=== PATIENT | female | born 1980 | race Caucasian/White ===

== ENCOUNTER 2017-04-19 01:03 | Emergency (ER) | payer MEDICAID ==
[2017-04-19] MEDS ORDERED: Sodium Chloride 0.9% 1,000 ML IV ONE ×2 (01:19→02:38)
[2017-04-19 01:44] LABS: CHLORIDE,CL 105 mmol/L (98-107); SODIUM,NA 141 mmol/L (136-145)
--- NOTE | 2017-04-19 01:55 | EDM.PDOC ---
ED HPI GENERAL MEDICAL PROBLEM - General Chief Complaint: General Stated Complaint: overdose Time Seen by Provider: 04/19/17 01:18 Source of Information: Reports: Patient, EMS, Other (Significant other) History Limitations: Reports: Altered Mental Status - History of Present Illness INITIAL COMMENTS - FREE TEXT/NARRATIVE: Patient took intentional overdose of medications mixed with ETOH at home this evening approximately 22:30. Angry with soon-to-be Ex. Stated she wanted to hurt self initially. Now denies it when asked if she is suicidal. She told us that she "would be ok" and appeared to be agreeable when asked if this was attention-seeking behavior. EMS said that she is middle of breakup with boyfriend and this apparently is part of the reason for tonight's issues. Patient continued to deny having any suicidal thoughts. No homicidal thoughts. Was oriented appropriately. Appeared fatigued, some slurring of words. Initially said that she took two types of pills. Later said she took 4 types as 4 bottles were empty and boyfriend told EMS that there had been pills in all 4 earlier today. Meds taken included Baclofen, Trazadone, Prozac, Zolpidem. If patient had been taking her medications appropriately prior to tonight she took approximately 45 Baclofen, 10 Trazadone 100mg, 30 Prozac, and 13 Zolpidem. She had a bottle of Clonazepam, uncertain if she took any. She says that she drank approximately 1/3 bottle of [place]. Lower Back Pain Score (Numeric/FACES): 7 - Related Data Allergies Allergy/AdvReac Type Severity Reaction Status Date / Time hydrocortisone Allergy Hives Verified 01/05/15 10:28 Penicillins Allergy Hives Verified 04/19/17 01:21 Home Meds: Home Meds Baclofen [Baclofen] 10 mg PO TID 05/14/14 [History] Hydrocodone/Acetaminophen [Hydrocodon-Acetaminoph 7.5-325] 1 tab PO TID [History] Levothyroxine [Sythroid] 150 mcg PO DAILY 05/14/14 [History] traZODone 100 mg PO BEDTIME 05/14/14 [History] FLUoxetine [PROzac] 4 cap PO DAILY 04/19/17 [History] Zolpidem [Ambien] 5 mg PO BEDTIME 04/19/17 [History] Past Medical History Other HEENT History: Hx of sinus infections Respiratory History: Reports: Asthma 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: , Other (See Below) Other OB/BYN History: Surgery to remove misplaced IUD Musculoskeletal History: Reports: Back Pain, Chronic Other Musculoskeletal History: Low back pain Psychiatric History: Reports: Addiction, Anxiety, Depression, Panic Attack, Suicide Attempt, Suicidal Ideation - Past Surgical History HEENT Surgical History: Reports: Adenoidectomy, Naso-Sinus Surgery, Oral Surgery , Tonsillectomy Other HEENT Surgeries/Procedures: [place] Teeth GI Surgical History: Reports: Appendectomy Female Surgical History: Reports: Tubal Ligation Social & Family History - Tobacco Use Smoking Status *Q: Current Every Day Smoker Years of Tobacco use: 20 Packs/Tins Daily: 1 Second Hand Smoke Exposure: No - Caffeine Use Caffeine Use: Reports: Coffee, Energy Drinks, Soda - Alcohol Use Days Per Week of Alcohol Use: 0 - Recreational Drug Use Recreational Drug Use: No Recreational Drug Type: Reports: Amphetamines (Speed), Fentanyl, Marijuana/ Hashish ED ROS GENERAL - Review of Systems Review Of Systems: See Below Constitutional: Reports: No Symptoms HEENT: Reports: No Symptoms Respiratory: Reports: No Symptoms Cardiovascular: Reports: No Symptoms Endocrine: Reports: No Symptoms GI/Abdominal: Reports: No Symptoms. Denies: Abdominal Pain, Nausea, Vomiting : Reports: No Symptoms Musculoskeletal: Reports: Back Pain (chronic, unchanged) Skin: Reports: No Symptoms Neurological: Reports: Trouble Speaking (slurred speech), Other (altered mentation from substance ingestion). Denies: Confusion, Dizziness, Headache, Seizure Psychiatric: Denies: Homicidal Ideation, Suicidal Ideation (denies) ED EXAM, GENERAL - Physical Exam Exam: See Below Exam Limited By: No Limitations General Appearance: No Apparent Distress, Other (awake, cooperative) Eye Exam: Bilateral Eye: EOMI, PERRL Ears: Normal External Exam, Normal Canal, Hearing Grossly Normal, Normal TMs Nose: Normal Inspection, Normal Mucosa, No Blood Throat/Mouth: Normal Inspection, Normal Lips, Normal Voice, No Airway Compromise Head: Atraumatic, Normocephalic Neck: Normal Inspection, Supple, Non-Tender, Full Range of Motion Respiratory/Chest: No Respiratory Distress, Lungs Clear, Normal Breath Sounds, No Accessory Muscle Use Cardiovascular: Normal Peripheral Pulses, Regular Rate, Rhythm, No Edema, No Murmur Peripheral Pulses: 2+: Radial (L), Radial (R), Dorsalis Pedis (L), Dorsalis Pedis (R) GI/Abdominal: Normal Bowel Sounds, Soft, Non-Tender, No Distention, No Mass (Female) Exam: Deferred Rectal (Female) Exam: Deferred Back Exam: Normal Inspection Extremities: Normal Inspection, Normal Range of Motion, Non-Tender, No Pedal Edema, Normal Capillary Refill Neurological: Alert, Oriented (oriented x4), CN II-XII Intact, Normal Reflexes, No Motor/Sensory Deficits, Inattentive, Slow to Respond (mild) Psychiatric: Other (intoxicated) Skin Exam: Warm, Dry, Intact, Normal Color EKG INTERPRETATION EKG Date: 04/19/17 Time: 01:25 Rhythm: NSR Rate (Beats/Min): 90 [place]: RAD-Right [place] Deviation P-Wave: Present QRS: Normal ST-T: Normal QT: Prolonged (408) Comparison: Change From Previous EKG (previous EKG showed right axis deviation, however no QT prolongation) Course - Vital Signs Last Recorded V/S: Last Vital Signs Temp 37.4 C 04/19/17 04:45 Pulse 95 04/19/17 04:45 Resp 20 04/19/17 04:45 BP 105/60 04/19/17 04:45 Pulse Ox 95 04/19/17 04:45 - Orders/Labs/Meds Labs: Laboratory Tests 04/19/17 04/19/17 04/19/17 Range/Units : 01: 01:20 WBC 8.3 (4.0-10.2) K/uL RBC 4.75 (3.77-5.09) M/uL Hgb 14.9 (11.7-15.5) g/dL Hct 43.3 (34.0-46.0) % MCV 91.2 (84.0-98.0) fL MCH 31.4 (28.2-33.3) pg MCHC 34.4 (31.7-36.0) g/dL RDW 12.8 (11.2-14.1) % Plt Count 202 (150-350) K/uL Neut % (Auto) 69.2 (45.0-80.0) % Lymph % (Auto) 22.1 (10.0-50.0) % Morris % (Auto) 8.1 (2.0-14.0) % Eos % (Auto) 0.5 (0.0-5.0) % Baso % (Auto) 0.1 (0.0-2.0) % Neut # (Auto) 5.75 (1.40-7.00) K/uL Lymph # (Auto) 1.84 (0.50-3.50) K/uL Morris # (Auto) 0.67 (0.00-1.00) K/uL Eos # (Auto) 0.04 (0.00-0.50) K/uL Baso # (Auto) 0.01 (0.00-0.20) K/uL Sodium 141 (136-145) mmol/L Potassium 3.4 L (3.5-5.1) mmol/L Chloride 105 (98-107) mmol/L Carbon Dioxide 23.6 (21.0-32.0) mmol/L BUN 12 (7-18) mg/dL Creatinine 0.88 (0.51-1.17) mg/dL Est Cr Clr Drug Dosing 81.48 mL/min Estimated GFR (MDRD) > 60 mL/min Glucose 95 (74-106) mg/dL Calcium 8.9 (8.5-10.1) mg/dL Total Bilirubin 0.4 (0.2-1.0) mg/dL AST 12 L (15-37) U/L ALT 22 (12-78) U/L Alkaline Phosphatase 71 (46-116) IU/L Total Protein 7.1 (6.4-8.2) g/dL Albumin 3.9 (3.4-5.0) g/dL Specimen Type Urine Color Urine Appearance Urine pH (5.0-9.0) Ur Specific Cecilia (1.005-1.030) Urine Protein (NEGATIVE) mg/dL Urine Glucose (UA) (NEGATIVE) mg/dL Urine Ketones (NEGATIVE) mg/dL Urine Occult Blood (NEGATIVE) Urine Nitrite (NEGATIVE) Urine Bilirubin (NEGATIVE) Urine Urobilinogen (0.2-1.0) E.U./dL Ur Leukocyte Esterase (NEGATIVE) Urine RBC /HPF Urine WBC /HPF Ur Epithelial Cells /LPF Urine Bacteria (NONE TO FEW) /HPF Urine Opiates Screen Positive H (NEGATIVE) Urine Methadone Screen Negative (NEGATIVE) U Acetaminophen Screen Positive H (NEGATIVE) Ur Barbiturates Screen Negative (NEGATIVE) Ur Tricyclics Screen Negative (NEGATIVE) Ur Phencyclidine Scrn Negative (NEGATIVE) Ur Amphetamine Screen Positive H (NEGATIVE) U Methamphetamines Scrn Positive H (NEGATIVE) U Benzodiazepines Scrn Negative (NEGATIVE) U Cocaine Metab Screen Negative (NEGATIVE) U Marijuana (THC) Screen Positive H (NEGATIVE) Ethyl Alcohol 0.032 (0.000-0.080) g/dL 04/19/17 Range/Units 01:20 WBC (4.0-10.2) K/uL RBC (3.77-5.09) M/uL Hgb (11.7-15.5) g/dL Hct (34.0-46.0) % MCV (84.0-98.0) fL MCH (28.2-33.3) pg MCHC (31.7-36.0) g/dL RDW (11.2-14.1) % Plt Count (150-350) K/uL Neut % (Auto) (45.0-80.0) % Lymph % (Auto) (10.0-50.0) % Morris % (Auto) (2.0-14.0) % Eos % (Auto) (0.0-5.0) % Baso % (Auto) (0.0-2.0) % Neut # (Auto) (1.40-7.00) K/uL Lymph # (Auto) (0.50-3.50) K/uL Morris # (Auto) (0.00-1.00) K/uL Eos # (Auto) (0.00-0.50) K/uL Baso # (Auto) (0.00-0.20) K/uL Sodium (136-145) mmol/L Potassium (3.5-5.1) mmol/L Chloride (98-107) mmol/L Carbon Dioxide (21.0-32.0) mmol/L BUN (7-18) mg/dL Creatinine (0.51-1.17) mg/dL Est Cr Clr Drug Dosing mL/min Estimated GFR (MDRD) mL/min Glucose (74-106) mg/dL Calcium (8.5-10.1) mg/dL Total Bilirubin (0.2-1.0) mg/dL AST (15-37) U/L ALT (12-78) U/L Alkaline Phosphatase (46-116) IU/L Total Protein (6.4-8.2) g/dL Albumin (3.4-5.0) g/dL Specimen Type Urinvoid Urine Color Yellow Urine Appearance Clear Urine pH 6.5 (5.0-9.0) Ur Specific Cec[place] 1.020 (1.005-1.030) Urine Protein Negative (NEGATIVE) mg/dL Urine Glucose (UA) Negative (NEGATIVE) mg/dL Urine Ketones Negative (NEGATIVE) mg/dL Urine Occult Blood Negative (NEGATIVE) Urine Nitrite Negative (NEGATIVE) Urine Bilirubin Negative (NEGATIVE) Urine Urobilinogen 0.2 (0.2-1.0) E.U./dL Ur Leukocyte Esterase Trace H (NEGATIVE) Urine RBC 0-5 /HPF Urine WBC 5-10 H /HPF Ur Epithelial Cells Moderate H /LPF Urine Bacteria Few (NONE TO FEW) /HPF Urine Opiates Screen (NEGATIVE) Urine Methadone Screen (NEGATIVE) U Acetaminophen Screen (NEGATIVE) Ur Barbiturates Screen (NEGATIVE) Ur Tricyclics Screen (NEGATIVE) Ur Phencyclidine Scrn (NEGATIVE) Ur Amphetamine Screen (NEGATIVE) U Methamphetamines Scrn (NEGATIVE) U Benzodiazepines Scrn (NEGATIVE) U Cocaine Metab Screen (NEGATIVE) U Marijuana (THC) Screen (NEGATIVE) Ethyl Alcohol (0.000-0.080) g/dL Meds: Medications Discontinued Medications Generic Name Dose Route Start Last Admin Trade Name Carmen PRN Reason Stop Dose Admin Sodium Chloride 1,000 mls @ 999 mls/hr 04/19/17 01:19 04/19/17 01:37 Normal Saline IV 04/19/17 02:19 999 mls/hr .BOLUS ONE Administration Sodium Chloride 1,000 mls @ 200 mls/hr 04/19/17 02:38 04/19/17 02:41 Normal Saline IV 04/19/17 07:37 200 mls/hr .BOLUS ONE Administration - Re-Assessments/Exams Free Text/Narrative Re-Assessment/Exam: 04/19/17 02:26 Call placed to poison control. Baclofen, Trazadone, and Zolpidem all should have reached their peak by time patient was seen in ER. Given there usual side effects in OD situations, based on patients current LOC and interaction with staff, it is felt that she has appeared to not have taken a significant amount of these medications at reported time of ingestion. Prozac however does not peak until 8 hours and it is too early to tell if she has the potential for seratonin syndrome. Both Trazadone and Prozac cause prolonged QT, which patient did show on EKG. Recommended by Poison control to observe 12-24 hours. Given the prolonged QT, the unknown amount of ingestion of meds, and the peaking of the Prozac that will not happen until approximately 6:30am, arrangements were made to transfer patient to [facility] ER. accepted the patient and will determine what type of bed placement is appropriate for patient once she arrives there. Drug screen + for Meth/Amphetamine, opioids, THC. 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 Remains stable, comfortable, and able to converse with staff and significant other. Departure - Departure Time of Disposition: 05:10 Disposition: DC/Tfer to Acute Hospital 02 Condition: Good Clinical Impression: Alcohol abuse, Methamphetamine abuse Overdose Qualifiers: Encounter type: initial encounter Injury intent: intentional self-harm Qualified Code(s): T50.902A - Poisoning by unspecified drugs, medicaments and biological substances, intentional self-harm, initial encounter - Discharge Information Referrals: PCP,None [Ordering Only Provider] - Forms: ED Department Discharge
[2017-04-19 04:49] VITALS: BP 105/60
== END 2017-04-19 05:10 ==
LOC: LL.ED 01:03
DX: T42.8X2A Poisoning by antiparkinsonism drugs and other central muscle-tone depressants, intentional self-harm, initial encounter (principal); T43.212A Poisoning by selective serotonin and norepinephrine reuptake inhibitors, intentional self-harm, initial encounter; T43.222A Poisoning by selective serotonin reuptake inhibitors, intentional self-harm, initial encounter; T42.6X2A Poisoning by other antiepileptic and sedative-hypnotic drugs, intentional self-harm, initial encounter; F10.129 Alcohol abuse with intoxication, unspecified; F15.10 Other stimulant abuse, uncomplicated; Y90.1 Blood alcohol level of 20-39 mg/100 ml; F41.0 Panic disorder [episodic paroxysmal anxiety]; F32.9 Major depressive disorder, single episode, unspecified; F17.210 Nicotine dependence, cigarettes, uncomplicated; Z79.899 Other long term (current) drug therapy; Z88.0 Allergy status to penicillin; Z88.8 Allergy status to other drugs, medicaments and biological substances
CPT/HCPCS: 36415; 80053; 80305; 81001; 85025; 87086; 93005; 96360; 96361; 99285; G0480; J7030

== ENCOUNTER 2018-08-17 23:48 | Emergency (ER) | payer MEDICAID ==
[2018-08-18 00:01] VITALS: BP 120/76
--- NOTE | 2018-08-18 00:57 | EDM.PDOC ---
ED HPI GENERAL MEDICAL PROBLEM - General Chief Complaint: General Stated Complaint: throat pain Time Seen by Provider: 08/18/18 00:08 Source of Information: Reports: Patient History Limitations: Reports: No Limitations - History of Present Illness INITIAL COMMENTS - FREE TEXT/NARRATIVE: Patient comes to ER due to sore throat. Was seen at clinic for this. No culture performed. Placed on Z-pack. Patient concerned that throat pain is not any better as she has taken 4 days of the zpak. No fevers/chills. No other HEENT complaints. Has cough. No N/V/D. No changes. Tylenol and Ibuprofen are not helpful. Is unable to sleep. Unhappy that her primary provider discontinued he Klonopin. Reports she had a panic attack earlier today. Also reports stress/pending divorce. Treatments [place] ORD[place]: Reports: Acetaminophen, Other Medication(s) Other Treatments [place] ORDINARY: ibuprofen,mucinex throat Pain Score (Numeric/FACES): 7 - Related Data Allergies Allergy/AdvReac Type Severity Reaction Status Date / Time acyclovir Allergy Other Verified 08/17/18 23:53 hydrocortisone Allergy Hives Verified 08/17/18 23:53 Penicillins Allergy Hives Verified 08/17/18 23:53 Home Meds: Home Meds traZODone 100 mg PO BEDTIME 05/14/14 [History] FLUoxetine [PROzac] 40 mg PO DAILY 04/19/17 [History] Levothyroxine 75 mcg PO QAM 03/26/18 [History] Acetaminophen 1,000 mg PO BID PRN 08/18/18 [History] Azithromycin [Zithromax] 250 mg PO ASDIRECTED 08/18/18 [History] Benzonatate [Tessalon Perle] 100 mg PO Q8H PRN #30 capsule 08/18/18 [Rx] Cyclobenzaprine [Flexeril] 5 mg PO TID PRN 08/18/18 [History] Gabapentin [Neurontin] 600 mg PO 0800 08/18/18 [History] Gabapentin [Neurontin] 900 mg PO BEDTIME 08/18/18 [History] Ibuprofen [Motrin] 800 mg PO TID PRN 08/18/18 [History] Nitrofurantoin [place]/Macrocryst [Nitrofurantoin [place]-MCR] 100 mg PO DAILY [History] busPIRone [Buspar] 15 mg PO DAILY 08/18/18 [History] guaiFENesin [Guaifenesin] 400 mg PO DAILY 08/18/18 [History] valACYclovir [Valtrex] 2 tab PO DAILY PRN 08/18/18 [History] Past Medical History Other HEENT History: Hx of sinus infections Respiratory History: Reports: Asthma Genitourinary History: Reports: Renal Calculus 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: , Other (See Below) 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 SODA History: Surgery to remove misplaced IUD Musculoskeletal History: Reports: Back Pain, Chronic Other Musculoskeletal History: Low back pain Psychiatric History: Reports: Addiction, Anxiety, Depression, Panic Attack, Suicide Attempt, Suicidal Ideation - Past Surgical History HEENT Surgical History: Reports: Adenoidectomy, Naso-Sinus Surgery, Oral Surgery , Tonsillectomy Other HEENT Surgeries/Procedures: [place] Teeth GI Surgical History: Reports: Appendectomy Female Surgical History: Reports: Tubal Ligation Social & Family History - Tobacco Use Smoking Status *Q: Current Every Day Smoker Years of Tobacco use: 20 Packs/Tins Daily: 0.5 Used Tobacco, but Quit: No Second Hand Smoke Exposure: No - Caffeine Use Caffeine Use: Reports: Soda Other Caffeine Use: mt dew - Recreational Drug Use Recreational Drug Use: No ED ROS GENERAL - Review of Systems Review Of Systems: See Below Constitutional: Reports: Decreased Appetite. Denies: Fever, Chills, Malaise, Weakness, Fatigue, Night Sweats, Diaphoresis HEENT: Reports: Throat Pain. Denies: Ear Pain, Eye Discharge, Throat Swelling Respiratory: Reports: Cough. Denies: Shortness of Breath, Wheezing, Pleuritic Chest Pain, Sputum Cardiovascular: Reports: No Symptoms GI/Abdominal: Reports: No Symptoms : Reports: No Symptoms Musculoskeletal: Reports: No Symptoms Skin: Reports: No Symptoms Neurological: Reports: No Symptoms Psychiatric: Reports: Other (panic attack earlier today) ED EXAM, GENERAL - Physical Exam Exam: See Below Exam Limited By: No Limitations General Appearance: Alert, Thin, Other (pale) Eye Exam: Bilateral Eye: EOMI, PERRL Ears: Normal External Exam, Normal Canal, Hearing Grossly Normal, Normal TMs Nose: No: Nasal Deformity, Nasal Swelling, Nasal Drainage Throat/Mouth: Normal Inspection, Normal Oropharynx, Normal Voice, No Airway Compromise. No: Inflammation Head: Atraumatic, Normocephalic Neck: Normal Inspection, Supple, Non-Tender, Full Range of Motion. No: Lymphadenopathy (L), Lymphadenopathy (R) Respiratory/Chest: No Respiratory Distress, Lungs Clear, Normal Breath Sounds, No Accessory Muscle Use Cardiovascular: Normal Peripheral Pulses, Regular Rate, Rhythm, No Murmur GI/Abdominal: Normal Bowel Sounds, Soft, Non-Tender (Female) Exam: Deferred Rectal (Female) Exam: Deferred Back Exam: No: Muscle Spasm Extremities: Normal Inspection Neurological: Alert, Oriented, Normal Gait Psychiatric: Normal Affect, Normal Mood Skin Exam: Warm, Dry Course - Vital Signs Last Recorded V/S: Last Vital Signs Temp 36.8 C 08/17/18 23:53 Pulse 93 08/17/18 23:53 Resp 16 08/17/18 23:53 BP 120/76 08/17/18 23:53 Pulse Ox 100 08/17/18 23:53 - Orders/Labs/Meds Orders: Active Orders 24 hr Category Date Time Status Chest 2V [CR] Stat Exams 08/18/18 00:30 Ordered CULTURE STREP A CONFIRMATION [RM] Stat Lab 08/18/18 00:30 Results STREP SCRN A RAPID W CULT CONF [RM] Stat Lab 08/18/18 00:30 Ordered ClonazePAM [KlonoPIN] Med 08/18/18 01:24 Once 0.5 mg PO ONETIME ONE Labs: Laboratory Tests 08/18/18 08/18/18 08/18/18 Range/Units 00:35 00:35 00:35 WBC 8.5 (4.0-10.2) K/uL RBC 4.41 (3.77-5.09) M/uL Hgb 13.8 D (11.7-15.5) g/dL Hct 40.3 (34.0-46.0) % MCV 91.4 D (84.0-98.0) fL MCH 31.3 (28.2-33.3) pg MCHC 34.2 (31.7-36.0) g/dL RDW 12.5 (11.2-14.1) % Plt Count 186 (150-350) K/uL Neut % (Auto) 64.2 (45.0-80.0) % Lymph % (Auto) 23.3 (10.0-50.0) % [place]atte % (Auto) 11.0 (2.0-14.0) % Eos % (Auto) 1.4 (0.0-5.0) % Baso % (Auto) 0.1 (0.0-2.0) % Neut # (Auto) 5.43 (1.40-7.00) K/uL Lymph # (Auto) 1.97 (0.50-3.50) K/uL [place]atte # (Auto) 0.93 (0.00-1.00) K/uL Eos # (Auto) 0.12 (0.00-0.50) K/uL Baso # (Auto) 0.01 (0.00-0.20) K/uL Sodium 140 (136-145) mmol/L Potassium 3.4 L (3.5-5.1) mmol/L Chloride 105 (98-107) mmol/L Carbon Dioxide 28.2 (21.0-32.0) mmol/L BUN 19 H (7-18) mg/dL Creatinine 0.66 (0.51-1.17) mg/dL Est Cr Clr Drug Dosing 108.19 mL/min Estimated GFR (MDRD) > 60 mL/min Glucose 116 H (74-106) mg/dL Calcium 8.7 (8.5-10.1) mg/dL Total Bilirubin 0.8 (0.2-1.0) mg/dL AST 14 L (15-37) U/L ALT 19 (12-78) U/L Alkaline Phosphatase 84 (46-116) IU/L Total Protein 7.1 (6.4-8.2) g/dL Albumin 3.8 (3.4-5.0) g/dL Specimen Type Urine Color Urine Appearance Urine pH (5.0-9.0) Ur Specific [place] (1.005-1.030) Urine Protein (NEGATIVE) mg/dL Urine Glucose (UA) (NEGATIVE) mg/dL Urine Ketones (NEGATIVE) mg/dL Urine Occult Blood (NEGATIVE) Urine Nitrite (NEGATIVE) Urine Bilirubin (NEGATIVE) Urine Urobilinogen (0.2-1.0) E.U./dL Ur Leukocyte Esterase (NEGATIVE) Urine RBC /HPF Urine WBC /HPF Ur Epithelial Cells /LPF Amorphous Sediment (0/HPF) /HPF Urine Bacteria (NONE TO FEW) /HPF Urinalysis Comment Urine HCG, Qual Urine Opiates Screen (NEGATIVE) Urine Methadone Screen (NEGATIVE) U Acetaminophen Screen (NEGATIVE) Ur Barbiturates Screen (NEGATIVE) Ur Tricyclics Screen (NEGATIVE) Ur Phencyclidine Scrn (NEGATIVE) Ur Amphetamine Screen (NEGATIVE) U Methamphetamines Scrn (NEGATIVE) U Benzodiazepines Scrn (NEGATIVE) U Cocaine Metab Screen (NEGATIVE) U Marijuana (THC) Screen (NEGATIVE) Ethyl Alcohol 0.000 (0.000-0.080) g/dL 08/18/18 08/18/18 08/18/18 Range/Units 00:45 00:45 00:45 WBC (4.0-10.2) K/uL RBC (3.77-5.09) M/uL Hgb (11.7-15.5) g/dL Hct (34.0-46.0) % MCV (84.0-98.0) fL MCH (28.2-33.3) pg MCHC (31.7-36.0) g/dL RDW (11.2-14.1) % Plt Count (150-350) K/uL Neut % (Auto) (45.0-80.0) % Lymph % (Auto) (10.0-50.0) % [place]atte % (Auto) (2.0-14.0) % Eos % (Auto) (0.0-5.0) % Baso % (Auto) (0.0-2.0) % Neut # (Auto) (1.40-7.00) K/uL Lymph # (Auto) (0.50-3.50) K/uL [place]atte # (Auto) (0.00-1.00) K/uL Eos # (Auto) (0.00-0.50) K/uL Baso # (Auto) (0.00-0.20) K/uL Sodium (136-145) mmol/L Potassium (3.5-5.1) mmol/L Chloride (98-107) mmol/L Carbon Dioxide (21.0-32.0) mmol/L BUN (7-18) mg/dL Creatinine (0.51-1.17) mg/dL Est Cr Clr Drug Dosing mL/min Estimated GFR (MDRD) mL/min Glucose (74-106) mg/dL Calcium (8.5-10.1) mg/dL Total Bilirubin (0.2-1.0) mg/dL AST (15-37) U/L ALT (12-78) U/L Alkaline Phosphatase (46-116) IU/L Total Protein (6.4-8.2) g/dL Albumin (3.4-5.0) g/dL Specimen Type Urinblad Urine Color Annetta Urine Appearance Slightly cloudy Urine pH 5.5 (5.0-9.0) Ur Specific [place] >= 1.030 (1.005-1.030) Urine Protein Trace H (NEGATIVE) mg/dL Urine Glucose (UA) Negative (NEGATIVE) mg/dL Urine Ketones 80 H (NEGATIVE) mg/dL Urine Occult Blood Negative (NEGATIVE) Urine Nitrite Negative (NEGATIVE) Urine Bilirubin Small H (NEGATIVE) Urine Urobilinogen 1.0 (0.2-1.0) E.U./dL Ur Leukocyte Esterase Trace H (NEGATIVE) Urine RBC 0-5 /HPF Urine WBC 0-5 /HPF Ur Epithelial Cells Many H /LPF Amorphous Sediment Many H (0/HPF) /HPF Urine Bacteria Moderate H (NONE TO FEW) /HPF Urinalysis Comment Urine HCG, Qual Negative Urine Opiates Screen Negative (NEGATIVE) Urine Methadone Screen Negative (NEGATIVE) U Acetaminophen Screen Positive H (NEGATIVE) Ur Barbiturates Screen Negative (NEGATIVE) Ur Tricyclics Screen Positive H (NEGATIVE) Ur Phencyclidine Scrn Negative (NEGATIVE) Ur Amphetamine Screen Positive H (NEGATIVE) U Methamphetamines Scrn Positive H (NEGATIVE) U Benzodiazepines Scrn Negative (NEGATIVE) U Cocaine Metab Screen Negative (NEGATIVE) U Marijuana (THC) Screen Positive H (NEGATIVE) Ethyl Alcohol (0.000-0.080) g/dL Meds: Medications Discontinued Medications Generic Name Dose Route Start Last Admin Trade Name Freq PRN Reason Stop Dose Admin Benzonatate 200 mg 08/18/18 01:22 Tessalon Perles PO 08/18/18 01:23 ONETIME ONE Clonidine HCl 0.1 mg 08/18/18 01:22 Catapres PO 08/18/18 01:23 ONETIME ONE Ketorolac Tromethamine 60 mg 08/18/18 01:22 Toradol IM 08/18/18 01:23 ONETIME ONE Potassium Chloride 40 meq 08/18/18 01:14 Klor-Con M20 PO 08/18/18 01:15 ONETIME ONE - Radiology Interpretation Free Text/Narrative:: chest xray unremarkable. - Re-Assessments/Exams Free Text/Narrative Re-Assessment/Exam: 08/18/18 01:25 Normal WBC. Negative rapid strep. CBC/Chem overall unremarkable. UA showed ketones, however no changes suggestive of UTI. DRug screen + for Meth/THC. Patient received IM Toradol to help with pain. Single dose of Klonopin given to help her sleep tonight. Single dose Tessalon for cough. Suspect viral respiratory illness. Recommend taking last zithromax tomorrow as scheduled. To follow up as needed. Time spent discussing lifestyle choices as well as strategies to stop using Meth. Patient blamed the meth use on current life stressors/interpersonal problems. 08/18/18 01:31 Declined IV fluids Departure - Departure Time of Disposition: 01:40 Disposition: Home, Self-Care 01 Condition: Good Clinical Impression: Methamphetamine abuse, Respiratory tract infection Pharyngitis Qualifiers: Pharyngitis/tonsillitis etiology: unspecified etiology Qualified Code(s): J02.9 - Acute pharyngitis, unspecified - Discharge Information *PRESCRIPTION DRUG MONITORING PROGRAM REVIEWED*: Not Applicable *COPY OF PRESCRIPTION DRUG MONITORING REPORT IN PATIENT TERRY: Not Applicable Prescriptions: Benzonatate [Tessalon Perle] 100 mg PO Q8H PRN #30 capsule PRN Reason: Cough Instructions: Sore Throat, [id number], Stimulant Use Disorder- Methamphetamines Referrals: Zuleyma Keith, MUD JACK OPERATOR [Primary Care Provider] - Forms: ED Department Discharge, ED Return to Work/School Form Additional Instructions: Finish taking your Z-pack as instructed. Stay hydrated (water), continue Tylenol and Ibuprofen to help with pain. No work tomorrow. Follow up as needed if no improvement is noted. - My Orders Last 24 Hours: My Active Orders 08/18/18 00:30 Chest 2V [CR] Stat CULTURE STREP A CONFIRMATION [RM] Stat STREP SCRN A RAPID W CULT CONF [RM] Stat 08/18/18 01:24 ClonazePAM [KlonoPIN] 0.5 mg PO ONETIME ONE - Assessment/Plan Last 24 Hours: My Active Orders 08/18/18 00:30 Chest 2V [CR] Stat CULTURE STREP A CONFIRMATION [RM] Stat STREP SCRN A RAPID W CULT CONF [RM] Stat 08/18/18 01:24 ClonazePAM [KlonoPIN] 0.5 mg PO ONETIME ONE
[2018-08-18 00:58] LABS: CHLORIDE,CL 105 mmol/L (98-107); SODIUM,NA 140 mmol/L (136-145)
[2018-08-18] MEDS ORDERED: Potassium Chloride 20 MEQ Tab.ER PO ONE (01:14)
[2018-08-18] MEDS ORDERED: cloNIDine 0.1 MG Tab PO ONE (01:22)
[2018-08-18] MEDS ORDERED: Benzonatate 100 MG Cap PO ONE (01:22)
[2018-08-18] MEDS ORDERED: ClonazePAM 0.5 MG Tab PO ONE (01:24)
[2018-08-18] MEDS: Ketorolac 60 MG/2 ML SDV IM ONE ×2 (01:31→01:39)
== END 2018-08-18 01:45 | disposition home or self-care (01) ==
LOC: LL.ED 23:48
DX: J02.9 Acute pharyngitis, unspecified (principal); F15.10 Other stimulant abuse, uncomplicated; F17.210 Nicotine dependence, cigarettes, uncomplicated; F41.9 Anxiety disorder, unspecified; F32.9 Major depressive disorder, single episode, unspecified; J45.909 Unspecified asthma, uncomplicated; Z79.899 Other long term (current) drug therapy; Z88.0 Allergy status to penicillin; Z88.8 Allergy status to other drugs, medicaments and biological substances
CPT/HCPCS: 36415; 71046; 80053; 80305-QW; 81001; 81025; 85025; 87081; 87430; 99283-25; A9270-GY; G0480; J1885

== ENCOUNTER 2019-03-01 17:18 | Emergency (ER) | payer MEDICAID ==
[2019-03-01 17:58] VITALS: BP 126/80; PULSE 106
--- NOTE | 2019-03-01 18:11 | EDM.PDOC ---
ED HPI GENERAL MEDICAL PROBLEM - General Chief Complaint: Respiratory Problem Stated Complaint: Cough, Fatuige Time Seen by Provider: 03/01/19 17:57 Source of Information: Reports: Patient History Limitations: Reports: No Limitations - History of Present Illness INITIAL COMMENTS - FREE TEXT/NARRATIVE: Pt with cough for 2 weeks Also with fatigue Also with some congestion Onset: Gradual Duration: Week(s): Location: Reports: Chest Worsens with: Reports: Breathing Associated Symptoms: Reports: Cough - Related Data Allergies Allergy/AdvReac Type Severity Reaction Status Date / Time acyclovir Allergy Other Verified 08/17/18 23:53 hydrocortisone Allergy Hives Verified 08/17/18 23:53 Penicillins Allergy Hives Verified 08/17/18 23:53 Home Meds: Home Meds traZODone 100 mg PO BEDTIME 05/14/14 [History] FLUoxetine [PROzac] 40 mg PO DAILY 04/19/17 [History] Levothyroxine 75 mcg PO QAM 03/26/18 [History] Acetaminophen 1,000 mg PO BID PRN 08/18/18 [History] Azithromycin [Zithromax] 250 mg PO ASDIRECTED 08/18/18 [History] Benzonatate [Tessalon Perle] 100 mg PO Q8H PRN #30 capsule 08/18/18 [Rx] Cyclobenzaprine [Flexeril] 5 mg PO TID PRN 08/18/18 [History] Gabapentin [Neurontin] 600 mg PO 0800 08/18/18 [History] Gabapentin [Neurontin] 900 mg PO BEDTIME 08/18/18 [History] Ibuprofen [Motrin] 800 mg PO TID PRN 08/18/18 [History] Nitrofurantoin [place]/Macrocryst [Nitrofurantoin [place]-MCR] 100 mg PO DAILY [History] busPIRone [Buspar] 15 mg PO DAILY 08/18/18 [History] guaiFENesin [Guaifenesin] 400 mg PO DAILY 08/18/18 [History] valACYclovir [Valtrex] 2 tab PO DAILY PRN 08/18/18 [History] Past Medical History Other HEENT History: Hx of sinus infections Respiratory History: Reports: Asthma Genitourinary History: Reports: Renal Calculus 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 GENERATOR MANAGER History: Reports: , Other (See Below) Other DEMAND GENERATOR MANAGER History: Surgery to remove misplaced IUD Musculoskeletal History: Reports: Back Pain, Chronic Other Musculoskeletal History: Low back pain Psychiatric History: Reports: Addiction, Anxiety, Depression, Panic Attack, Suicide Attempt, Suicidal Ideation - Past Surgical History HEENT Surgical History: Reports: Adenoidectomy, Naso-Sinus Surgery, Oral Surgery , Tonsillectomy Other HEENT Surgeries/Procedures: Rogers Teeth GI Surgical History: Reports: Appendectomy Female Surgical History: Reports: Tubal Ligation Social & Family History - Caffeine Use Caffeine Use: Reports: Soda Other Caffeine Use: mt dew ED ROS GENERAL - Review of Systems Review Of Systems: See Below Constitutional: Reports: Fatigue Respiratory: Reports: Cough ED EXAM, GENERAL - Physical Exam Exam: See Below Exam Limited By: No Limitations Nose: Normal Inspection Throat/Mouth: Normal Oropharynx Respiratory/Chest: Lungs Clear, Normal Breath Sounds Course - Vital Signs Last Recorded V/S: Last Vital Signs Temp 36.6 C 03/01/19 17:20 Pulse 106 H 03/01/19 17:20 Resp 16 03/01/19 17:20 BP 126/80 03/01/19 17:20 Pulse Ox 100 03/01/19 17:20 - Orders/Labs/Meds Orders: Active Orders 24 hr Category Date Time Status Chest 2V [CR] Stat Exams 03/01/19 17:35 Taken Labs: Laboratory Tests 03/01/19 Range/Units 17:45 WBC 7.5 (4.0-10.2) K/uL RBC 4.80 (3.77-5.09) M/uL Hgb 14.9 (11.7-15.5) g/dL Hct 43.8 (34.0-46.0) % MCV 91.3 (84.0-98.0) fL MCH 31.0 (28.2-33.3) pg MCHC 34.0 (31.7-36.0) g/dL RDW 12.5 (11.2-14.1) % Plt Count 232 (150-350) K/uL MPV 11.10 (7.00-11.50) fL - Radiology Interpretation Free Text/Narrative:: CXR without acute infiltrate Departure - Departure Time of Disposition: 18:10 Disposition: Home, Self-Care 01 Clinical Impression: URI (upper respiratory infection) Qualifiers: URI type: unspecified viral URI Qualified Code(s): J06.9 - Acute upper respiratory infection, unspecified - Discharge Information *PRESCRIPTION DRUG MONITORING PROGRAM REVIEWED*: Not Applicable *COPY OF PRESCRIPTION DRUG MONITORING REPORT IN PATIENT TERRY: Not Applicable Instructions: Upper Respiratory Infection, Adult, Loir-[id number] Referrals: Zuleyma Keith, CONGRESSIONAL DISTRICT AIDE [Primary Care Provider] - Additional Instructions: Rx Berry Hernandez Follow up in clinic - My Orders Last 24 Hours: My Active Orders 03/01/19 17:35 Chest 2V [CR] Stat - Assessment/Plan Last 24 Hours: My Active Orders 03/01/19 17:35 Chest 2V [CR] Stat
== END 2019-03-01 18:15 | disposition home or self-care (01) ==
LOC: LL.ED 17:18
DX: J06.9 Acute upper respiratory infection, unspecified (principal); Z79.899 Other long term (current) drug therapy; Z88.0 Allergy status to penicillin
CPT/HCPCS: 36415; 71046; 85027; 99283; 99283-25

== ENCOUNTER 2019-03-14 01:30 | Emergency (ER) | payer SELFPAY ==
[2019-03-14] MEDS ORDERED: Potassium Chloride 20 MEQ Tab.ER PO ONE (03:05)
[2019-03-14 07:01] LABS: CHLORIDE,CL 100 mmol/L (98-107); SODIUM,NA 137 mmol/L (136-145)
== END 2019-03-14 03:16 | disposition home or self-care (01) ==
LOC: LL.ED 01:30
DX: E87.6 Hypokalemia (principal); M25.562 Pain in left knee
CPT/HCPCS: 36415; 80048; 85025; 99283; A9270-GY

== ENCOUNTER 2019-03-21 22:44 | Emergency (ER) | payer MEDICAID ==
[2019-03-21 22:53] VITALS: BP 133/79; PULSE 108
[2019-03-21 23:32] LABS: CHLORIDE,CL 105 mmol/L (98-107); SODIUM,NA 141 mmol/L (136-145)
[2019-03-21] MEDS ORDERED: diphenhydrAMINE 25 MG Cap PO ONE (23:44)
[2019-03-21] MEDS ORDERED: LORazepam 1 MG Tab PO ONE (23:44)
[2019-03-21] MEDS ORDERED: Acetaminophen 325 MG Tab PO ONE (23:47)
--- NOTE | 2019-03-21 23:47 | EDM.PDOC ---
ED HPI GENERAL MEDICAL PROBLEM - General Chief Complaint: Back Pain or Injury Stated Complaint: joint pain, abdominal pain, itchiness Time Seen by Provider: 03/21/19 23:07 Source of Information: Reports: Patient, Significant Other History Limitations: Reports: No Limitations - History of Present Illness INITIAL COMMENTS - FREE TEXT/NARRATIVE: Patient came to ER with a variety of chronic complaints...including anxiety, itching, low back pain, and left knee pain. 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 She has been without her usual medications to address these things for some time since she was unable to afford them. The itching problem started around a month ago. She blamed bed bugs and was seen here last week for that. Patient brought in small pieces of plastic flecks and thought they were bugs, even when told they were plastic flecks. Does have history of drug use in past. 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 Denies drug use for last 3 months. Did not give UA specimen last week that could be used for repeat testing. Reports that she is under a lot of stress. Both she and her S.O. are unemployed. Money is tight. She cannot afford any Benadryl to help with itching. They are considering moving to [facility]. She does have an appointment with a therapist later this week but will not be able to afford any prescriptions if they are recommended. They did apply for Medicaid and that is pending. Her main complaint appears to be itching. Second main complaint is anxiety. The low back pain/knee pain is present but no acute changes or reinjuries. Back Pain Score (Numeric/FACES): 8 - Related Data Allergies Allergy/AdvReac Type Severity Reaction Status Date / Time acyclovir Allergy Other Verified 03/21/19 22:53 hydrocortisone Allergy Hives Verified 03/21/19 22:53 Penicillins Allergy Hives Verified 03/21/19 22:53 Home Meds: Home Meds Acetaminophen 1,000 mg PO BID PRN 08/18/18 [History] Ibuprofen [Motrin] 800 mg PO TID PRN 08/18/18 [History] Past Medical History Other HEENT History: Hx of sinus infections Respiratory History: Reports: Asthma Genitourinary History: Reports: Renal Calculus FLUMER History: Reports: , Other (See Below) Other FLUMER History: Surgery to remove misplaced IUD Musculoskeletal History: Reports: Back Pain, Chronic Other Musculoskeletal History: Low back pain, left knee pain Psychiatric History: Reports: Addiction, Anxiety, Depression, Panic Attack, Suicide Attempt, Suicidal Ideation - Past Surgical History HEENT Surgical History: Reports: Adenoidectomy, Naso-Sinus Surgery, Oral Surgery , Tonsillectomy Other HEENT Surgeries/Procedures: Willard Teeth GI Surgical History: Reports: Appendectomy Female Surgical History: Reports: Tubal Ligation Social & Family History - Tobacco Use Smoking Status *Q: Current Every Day Smoker Years of Tobacco use: 23 Packs/Tins Daily: 0.5 - Caffeine Use Caffeine Use: Reports: Coffee, Soda Other Caffeine Use: mt dew - Alcohol Use Alcohol Use History: Yes - Recreational Drug Use Recreational Drug Use: Yes Drug Use in Last 12 Months: Yes ED ROS GENERAL - Review of Systems Review Of Systems: See Below Constitutional: Reports: No Symptoms HEENT: Reports: No Symptoms Respiratory: Reports: No Symptoms. Denies: Shortness of Breath Cardiovascular: Reports: No Symptoms. Denies: Chest Pain GI/Abdominal: Reports: No Symptoms : Reports: No Symptoms Musculoskeletal: Reports: Other (chronic back and knee pain) Skin: Reports: Pruritis. Denies: Rash, Erythema, Wound, Change in Color, Lesions, Urticaria Neurological: Reports: No Symptoms. Denies: Confusion, Dizziness, Headache, Change in Speech Psychiatric: Reports: Anxiety. Denies: Depression, Hallucinations, Homicidal Ideation, Mood Lability, Suicidal Ideation Hematologic/Lymphatic: Reports: No Symptoms ED EXAM, GENERAL - Physical Exam Exam: See Below Exam Limited By: No Limitations General Appearance: Alert, WD/WN, No Apparent Distress Eye Exam: Bilateral Eye: EOMI, PERRL Ears: Hearing Grossly Normal Nose: No: Nasal Deformity, Nasal Swelling, Nasal Drainage Throat/Mouth: Normal Lips, Normal Voice, No Airway Compromise Head: Atraumatic, Normocephalic Neck: Supple, Non-Tender, Full Range of Motion Respiratory/Chest: No Respiratory Distress Peripheral Pulses: 2+: Radial (L), Radial (R) GI/Abdominal: Soft (Female) Exam: Deferred Rectal (Female) Exam: Deferred Back Exam: No: Muscle Spasm Extremities: Normal Capillary Refill, Other (No swelling/redness noted around left knee. Able to extend/flex. Mild peripatellar tenderness with palpation. Joint appears stable. ) Neurological: Alert, Oriented, Normal Cognition, Normal Gait, No Motor/Sensory Deficits Psychiatric: Normal Affect, Normal Mood Skin Exam: Warm, Dry, Intact, Normal Color, No Rash Course - Vital Signs Last Recorded V/S: Last Vital Signs Temp 36.4 C 03/21/19 22:46 Pulse 108 H 03/21/19 22:46 Resp 20 03/21/19 22:46 BP 133/79 03/21/19 22:46 Pulse Ox 100 03/21/19 22:46 - Orders/Labs/Meds Labs: Laboratory Tests 03/21/19 03/21/19 Range/Units 23:09 23:09 WBC 8.4 (4.0-10.2) K/uL RBC 4.62 (3.77-5.09) M/uL Hgb 14.2 (11.7-15.5) g/dL Hct 41.8 (34.0-46.0) % MCV 90.5 (84.0-98.0) fL MCH 30.7 (28.2-33.3) pg MCHC 34.0 (31.7-36.0) g/dL RDW 12.5 (11.2-14.1) % Plt Count 302 (150-350) K/uL Neut % (Auto) 46.0 (45.0-80.0) % Lymph % (Auto) 39.5 (10.0-50.0) % [place] % (Auto) 10.0 (2.0-14.0) % Eos % (Auto) 3.9 (0.0-5.0) % Baso % (Auto) 0.6 (0.0-2.0) % Neut # (Auto) 3.87 (1.40-7.00) K/uL Lymph # (Auto) 3.33 (0.50-3.50) K/uL [place] # (Auto) 0.84 (0.00-1.00) K/uL Eos # (Auto) 0.33 (0.00-0.50) K/uL Baso # (Auto) 0.05 (0.00-0.20) K/uL Sodium 141 (136-145) mmol/L Potassium 3.5 (3.5-5.1) mmol/L Chloride 105 (98-107) mmol/L Carbon Dioxide 25.3 (21.0-32.0) mmol/L BUN 15 (7-18) mg/dL Creatinine 0.77 (0.51-1.17) mg/dL Est Cr Clr Drug Dosing 91.83 mL/min Estimated GFR (MDRD) > 60 mL/min Glucose 89 (74-106) mg/dL Calcium 8.7 (8.5-10.1) mg/dL Total Bilirubin 0.2 (0.2-1.0) mg/dL AST 17 (15-37) U/L ALT 23 (12-78) U/L Alkaline Phosphatase 82 (46-116) IU/L Total Protein 7.2 (6.4-8.2) g/dL Albumin 3.6 (3.4-5.0) g/dL Meds: Medications Discontinued Medications Generic Name Dose Route Start Last Admin Trade Name Freq PRN Reason Stop Dose Admin Acetaminophen 650 mg 03/21/19 23:47 03/21/19 23:52 Tylenol PO 03/21/19 23:48 650 mg NOW ONE Administration Diphenhydramine HCl 50 mg 03/21/19 23:44 03/21/19 23:53 Benadryl PO 03/21/19 23:45 50 mg ONETIME ONE Administration Lorazepam 1 mg 03/21/19 23:44 03/21/19 23:53 Ativan PO 03/21/19 23:45 1 mg ONETIME ONE Administration - Re-Assessments/Exams Free Text/Narrative Re-Assessment/Exam: 03/22/19 00:05 CBC/Chem normal. No focal findings on skin exam. No urticarial rash or other type of rash. No bites/vesicles/pustules/color changes. Long time spent talking with patient. They are unable to afford any Benadryl or Tylenol. Patient does continue to smoke however. When trying to troubleshoot possible exposures around that home that might cause pruritis, patient recalled that they switched to a generic laundry soap last month around the same time the itching developed. She has similar itching in past due to Tide. They now plan to switch laundry soaps and rewash everything. The knee pain/back pain is chronic/unchanged. No further evaluation performed this evening. Patient was offered Tylenol in addition to Benadryl. She does have chronic anxiety. Pulse rate elevated which may be due to anxiety , however must still entertain possible meth use as we were not able to completely rule that out without a urine test. Patient denies using however she denied similarly last August when test was positive. Meth can also cause itching. Single Ativan given to patient for the anxiety complaint. Strongly encouraged patient to follow up with therapist later this week and continue to work on obtaining insurance coverage. To follow up with her primary once insurance is re-established to discuss restarting her previous medications if indicated. She was in agreement with plan. Departure - Departure Time of Disposition: 23:53 Disposition: Home, Self-Care 01 Condition: Good Clinical Impression: Anxiety, Itching - Discharge Information *PRESCRIPTION DRUG MONITORING PROGRAM REVIEWED*: Not Applicable *COPY OF PRESCRIPTION DRUG MONITORING REPORT IN PATIENT TERRY: Not Applicable Forms: ED Department Discharge Additional Instructions: Follow up at your scheduled appointment with the therapist later this week. Obtain a different laundry soap and rewash clothes/towels/bedding. See if that helps with the itching. Avoid the hot showers, try moisturizing skin with coconut oil. Avoid anything with scents. Keep it simple. Continue to work on getting Medicaid coverage. Benadryl 1-2 tabs every 6 hours as needed may help itching. Follow up with your primary provider and therapist as recommended/needed.
== END 2019-03-22 00:04 | disposition home or self-care (01) ==
LOC: LL.ED 22:44
DX: F41.9 Anxiety disorder, unspecified (principal); L29.9 Pruritus, unspecified; G89.29 Other chronic pain; M54.5 Low back pain; M25.562 Pain in left knee; J45.909 Unspecified asthma, uncomplicated; F17.210 Nicotine dependence, cigarettes, uncomplicated; Z88.0 Allergy status to penicillin; Z88.1 Allergy status to other antibiotic agents; Z88.8 Allergy status to other drugs, medicaments and biological substances
CPT/HCPCS: 36415; 80053; 85025; 99284; A9270-GY

== ENCOUNTER 2019-05-26 10:05 | Emergency (ER) | payer MEDICAID ==
[2019-05-26] MEDS ORDERED: cefTRIAXone 1 GM in Sodium Chloride 0.9% 100 ML IV ONE (10:29)
[2019-05-26] MEDS ORDERED: methylPREDNISolone Sodium Succinate 40 MG/1 ML SDV IVPUSH ONE (10:29)
[2019-05-26] MEDS ORDERED: Sodium Chloride 0.9% 1,000 ML IV ONE (10:31)
[2019-05-26] MEDS ORDERED: traMADol 50 MG Tab PO ONE (11:01)
[2019-05-26] MEDS ORDERED: Ketorolac 30 MG/ML SDV IVPUSH ONE (11:01)
[2019-05-26 11:06] LABS: CHLORIDE,CL 103 mmol/L (98-107); SODIUM,NA 143 mmol/L (136-145)
[2019-05-26] MEDS ORDERED: Potassium Chloride 10 MEQ Tab.ER PO ONE ×2 (11:26→11:30)
[2019-05-26] MEDS ORDERED: LORazepam 2 MG/ML SDV IVPUSH ONE (11:27)
[2019-05-26] MEDS: Sodium Chloride 0.9% 10 ML Syringe FLUSH PRN ×2 (11:45→12:34)
[2019-05-26] MEDS ORDERED: Potassium Chloride 20 MEQ Tab.ER PO ONE (11:45)
--- NOTE | 2019-05-26 12:09 | EDM.PDOC ---
ED HPI GENERAL MEDICAL PROBLEM - General Chief Complaint: ENT Problem Stated Complaint: tooth infection, mouth sores Time Seen by Provider: 05/26/19 10:10 Source of Information: Reports: Patient History Limitations: Reports: No Limitations - History of Present Illness INITIAL COMMENTS - FREE TEXT/NARRATIVE: Patient has long history of dental disease. Hx of Meth abuse. Denies recent use. Last drug screen performed was August 2018 + for Meth. Recent increase in dental pain. Reports feeling hot/feverish but no recorded temp via thermometer. Unable to see dentist due to being on Medicaid/no one will agree to see her. Ended up at [facility] 3 days ago per self report and put on Clindamycin. Pain is worse. Now has swollen lower lip. No report of tongue/ pharyngeal swelling. - Related Data Allergies Allergy/AdvReac Type Severity Reaction Status Date / Time acyclovir Allergy Other Verified 05/26/19 10:30 hydrocortisone Allergy Hives Verified 05/26/19 10:30 Penicillins Allergy Hives Verified 05/26/19 10:30 Home Meds: Home Meds Acetaminophen 1,000 mg PO BID PRN 08/18/18 [History] Ibuprofen [Motrin] 800 mg PO TID PRN 08/18/18 [History] Clindamycin HCl 300 mg PO Q6HR 05/26/19 [History] FLUoxetine HCl [Fluoxetine HCl] 40 mg PO BEDTIME 05/26/19 [History] Hydrocodone/Acetaminophen [Hydrocodon-Acetaminophen 5-325] 1 tab PO Q6H [History] Levothyroxine 75 mcg PO QAM 05/26/19 [History] traZODone HCl [Trazodone HCl] 100 mg PO BEDTIME 05/26/19 [History] Past Medical History Other HEENT History: Hx of sinus infections Respiratory History: Reports: Asthma Genitourinary History: Reports: Renal Calculus CHIEF PHARMACIST History: Reports: , Other (See Below) Other CHIEF PHARMACIST History: Surgery to remove misplaced IUD Musculoskeletal History: Reports: Back Pain, Chronic Other Musculoskeletal History: Low back pain, left knee pain Psychiatric History: Reports: Addiction, Anxiety, Depression, Panic Attack, Suicide Attempt, Suicidal Ideation - Past Surgical History HEENT Surgical History: Reports: Adenoidectomy, Naso-Sinus Surgery, Oral Surgery , Tonsillectomy Other HEENT Surgeries/Procedures: [place] Teeth GI Surgical History: Reports: Appendectomy Female Surgical History: Reports: Tubal Ligation Social & Family History - Tobacco Use Smoking Status *Q: Current Every Day Smoker Packs/Tins Daily: 0.5 - Caffeine Use Caffeine Use: Reports: Coffee, Soda Other Caffeine Use: mt dew - Alcohol Use Alcohol Use History: Yes - Recreational Drug Use Drug Use in Last 12 Months: Yes Recreational Drug Type: Reports: Marijuana/Hashish, Methamphetamine Recreational Drug Use Comment: Patient reports no Meth use since January. ED ROS GENERAL - Review of Systems Review Of Systems: See Below Constitutional: Reports: Fever (Feels "hot" at times). Denies: Weakness, Fatigue, Night Sweats, Weight Loss HEENT: Reports: Dental Pain, Sinus Problem, Other (lower lip swelling/erosions in mouth. Says she has drainage from gums at times). Denies: Ear Discharge, Ear Pain, Eye Discharge, Eye Pain, Nose Pain, Throat Pain, Throat Swelling, Vertigo, Vision Change Respiratory: Reports: No Symptoms Cardiovascular: Reports: No Symptoms GI/Abdominal: Reports: No Symptoms, Difficulty Swallowing (due to dental pain and swollen lip) : Reports: Frequency. Denies: Flank Pain, Hematuria Musculoskeletal: Reports: Other (No acute changes) Skin: Reports: Other (Swollen right lower lip/ulcer inside of lip) Neurological: Reports: No Symptoms Psychiatric: Reports: No Symptoms Hematologic/Lymphatic: Reports: No Symptoms ED EXAM, GENERAL - Physical Exam Exam: See Below Exam Limited By: No Limitations General Appearance: Alert, Anxious, Thin Eye Exam: Bilateral Eye: EOMI, PERRL Ears: Hearing Grossly Normal Nose: No: Nasal Deformity, Nasal Swelling, Nasal Drainage Throat/Mouth: Other (right lower lip swollen/no drainage or skin breakdown. Multiple areas of dental caries/disease. No obvious gum swelling/drainage. Erosion noted inside inner lip consistent with apthous ulcer. ) Head: Facial Swelling (right lower lip), Facial Tenderness (along both jawlines) Neck: Supple, Non-Tender, Full Range of Motion. No: Lymphadenopathy (L), Lymphadenopathy (R) Respiratory/Chest: No Respiratory Distress, Lungs Clear, Normal Breath Sounds, No Accessory Muscle Use, Chest Non-Tender Cardiovascular: No Murmur, Tachycardia GI/Abdominal: Normal Bowel Sounds, Soft, Non-Tender, No Distention (Female) Exam: Deferred Rectal (Female) Exam: Deferred Back Exam: No: CVA Tenderness (L), CVA Tenderness (R), Muscle Spasm, Paraspinal Tenderness, Vertebral Tenderness Extremities: Normal Capillary Refill Neurological: Alert, Oriented, CN II-XII Intact, Normal Gait, No Motor/Sensory Deficits Psychiatric: Anxious Skin Exam: Warm, Dry Course - Vital Signs Last Recorded V/S: Last Vital Signs Temp 36.5 C 05/26/19 10:14 Pulse 102 H 05/26/19 10:14 Resp 22 H 05/26/19 10:14 BP 111/62 05/26/19 10:14 Pulse Ox 95 05/26/19 10:14 - Orders/Labs/Meds Orders: Active Orders 24 hr Category Date Time Status Max Facial Sinus wo Cont [CT] Stat Exams 05/26/19 10:31 Ordered Magnesium Sulfate/D5W [Magnesium Sulfate in D5W 100 Med 05/26/19 12:57 Ordered Premix] 1 gm Premix Bag 1 bag IV ONETIME Sodium Chloride 0.9% [Normal Saline] 500 ml Med 05/26/19 13:00 Ordered IV .BOLUS Sodium Chloride 0.9% [Saline Flush] Med 05/26/19 10:25 Ordered 10 ml FLUSH ASDIRECTED PRN Saline Lock Insert [OM.PC] Routine Oth 05/26/19 10:25 Ordered Medication Orders Magnesium Sulfate/Dextrose 1 (gm/ Premix) 100 mls @ 100 mls/hr IV ONETIME ONE Stop: 05/26/19 13:56 Sodium Chloride (Normal Saline) 500 mls @ 200 mls/hr IV .BOLUS JOSR Sodium Chloride (Saline Flush) 10 ml FLUSH ASDIRECTED PRN PRN Reason: Keep Vein Open Last Admin: 05/26/19 12:34 Dose: 10 ml Admin: 05/26/19 11:45 Dose: 10 ml Labs: Laboratory Tests 05/26/19 05/26/19 05/26/19 Range/Units 10:35 10:35 10:35 WBC 7.1 (4.0-10.2) K/uL RBC 4.46 (3.77-5.09) M/uL Hgb 13.7 (11.7-15.5) g/dL Hct 39.4 (34.0-46.0) % MCV 88.3 (84.0-98.0) fL MCH 30.7 (28.2-33.3) pg MCHC 34.8 (31.7-36.0) g/dL RDW 12.0 (11.2-14.1) % Plt Count 216 D (150-350) K/uL Neut % (Auto) 53.9 (45.0-80.0) % Lymph % (Auto) 34.9 (10.0-50.0) % [place] % (Auto) 9.3 (2.0-14.0) % Eos % (Auto) 1.6 (0.0-5.0) % Baso % (Auto) 0.3 (0.0-2.0) % Neut # (Auto) 3.82 (1.40-7.00) K/uL Lymph # (Auto) 2.47 (0.50-3.50) K/uL [place] # (Auto) 0.66 (0.00-1.00) K/uL Eos # (Auto) 0.11 (0.00-0.50) K/uL Baso # (Auto) 0.02 (0.00-0.20) K/uL Sodium 143 (136-145) mmol/L Potassium 2.7 L* (3.5-5.1) mmol/L Chloride 103 (98-107) mmol/L Carbon Dioxide 29.3 (21.0-32.0) mmol/L BUN 19 H (7-18) mg/dL Creatinine 0.88 (0.51-1.17) mg/dL Est Cr Clr Drug Dosing TNP Estimated GFR (MDRD) > 60 mL/min Glucose 100 (74-106) mg/dL Lactic Acid 0.8 (0.4-2.0) mmol/L Calcium 8.9 (8.5-10.1) mg/dL Magnesium 1.3 L (1.8-2.4) mg/dL Total Bilirubin 0.5 (0.2-1.0) mg/dL AST 15 (15-37) U/L ALT 21 (12-78) U/L Alkaline Phosphatase 80 (46-116) IU/L Total Protein 7.2 (6.4-8.2) g/dL Albumin 4.0 (3.4-5.0) g/dL Specimen Type Urine Color Urine Appearance Urine pH (5.0-9.0) Ur Specific [place] (1.005-1.030) Urine Protein (NEGATIVE) mg/dL Urine Glucose (UA) (NEGATIVE) mg/dL Urine Ketones (NEGATIVE) mg/dL Urine Occult Blood (NEGATIVE) Urine Nitrite (NEGATIVE) Urine Bilirubin (NEGATIVE) Urine Urobilinogen (0.2-1.0) E.U./dL Ur Leukocyte Esterase (NEGATIVE) Urine RBC /HPF Urine WBC /HPF Ur Epithelial Cells /LPF Urine Bacteria (NONE TO FEW) /HPF Urine Mucus (NEGATIVE) /LPF Urine Opiates Screen (NEGATIVE) Ur Buprenorphine Scrn (NEGATIVE) Ur Oxycodone Screen (NEGATIVE) Ur EDDP (Meth Metab) (NEGATIVE) Ur Barbiturates Screen (NEGATIVE) Ur Tricyclics Screen (NEGATIVE) Ur Amphetamine Screen (NEGATIVE) U Methamphetamines Scrn (NEGATIVE) Urine MDMA Screen (NEGATIVE) U Benzodiazepines Scrn (NEGATIVE) U Cocaine Metab Screen (NEGATIVE) U Marijuana (THC) Screen (NEGATIVE) Ethyl Alcohol 05/26/19 05/26/19 05/26/19 Range/Units 10:35 12:25 12:25 WBC (4.0-10.2) K/uL RBC (3.77-5.09) M/uL Hgb (11.7-15.5) g/dL Hct (34.0-46.0) % MCV (84.0-98.0) fL MCH (28.2-33.3) pg MCHC (31.7-36.0) g/dL RDW (11.2-14.1) % Plt Count (150-350) K/uL Neut % (Auto) (45.0-80.0) % Lymph % (Auto) (10.0-50.0) % [place] % (Auto) (2.0-14.0) % Eos % (Auto) (0.0-5.0) % Baso % (Auto) (0.0-2.0) % Neut # (Auto) (1.40-7.00) K/uL Lymph # (Auto) (0.50-3.50) K/uL [place] # (Auto) (0.00-1.00) K/uL Eos # (Auto) (0.00-0.50) K/uL Baso # (Auto) (0.00-0.20) K/uL Sodium (136-145) mmol/L Potassium (3.5-5.1) mmol/L Chloride (98-107) mmol/L Carbon Dioxide (21.0-32.0) mmol/L BUN (7-18) mg/dL Creatinine (0.51-1.17) mg/dL Est Cr Clr Drug Dosing Estimated GFR (MDRD) mL/min Glucose (74-106) mg/dL Lactic Acid (0.4-2.0) mmol/L Calcium (8.5-10.1) mg/dL Magnesium (1.8-2.4) mg/dL Total Bilirubin (0.2-1.0) mg/dL AST (15-37) U/L ALT (12-78) U/L Alkaline Phosphatase (46-116) IU/L Total Protein (6.4-8.2) g/dL Albumin (3.4-5.0) g/dL Specimen Type Urinblad Urine Color Dark yellow Urine Appearance Slightly cloudy Urine pH 6.5 (5.0-9.0) Ur Specific [place] >= 1.030 (1.005-1.030) Urine Protein Negative (NEGATIVE) mg/dL Urine Glucose (UA) Negative (NEGATIVE) mg/dL Urine Ketones Negative (NEGATIVE) mg/dL Urine Occult Blood Small H (NEGATIVE) Urine Nitrite Negative (NEGATIVE) Urine Bilirubin Negative (NEGATIVE) Urine Urobilinogen 0.2 (0.2-1.0) E.U./dL Ur Leukocyte Esterase Negative (NEGATIVE) Urine RBC 10-20 H /HPF Urine WBC 0-5 /HPF Ur Epithelial Cells Few /LPF Urine Bacteria Few (NONE TO FEW) /HPF Urine Mucus Moderate H (NEGATIVE) /LPF Urine Opiates Screen Positive H (NEGATIVE) Ur Buprenorphine Scrn Negative (NEGATIVE) Ur Oxycodone Screen Positive H (NEGATIVE) Ur EDDP (Meth Metab) Negative (NEGATIVE) Ur Barbiturates Screen Negative (NEGATIVE) Ur Tricyclics Screen Negative (NEGATIVE) Ur Amphetamine Screen Positive H (NEGATIVE) U Methamphetamines Scrn Positive H (NEGATIVE) Urine MDMA Screen Positive H (NEGATIVE) U Benzodiazepines Scrn Negative (NEGATIVE) U Cocaine Metab Screen Negative (NEGATIVE) U Marijuana (THC) Screen Positive H (NEGATIVE) Ethyl Alcohol < 0.002 Meds: Medications Generic Name Dose Route Start Last Admin Trade Name Freq PRN Reason Stop Dose Admin Magnesium Sulfate/Dextrose 1 100 mls @ 100 mls/hr 05/26/19 12:57 gm/ Premix IV 05/26/19 13:56 ONETIME ONE Sodium Chloride 500 mls @ 200 mls/hr 05/26/19 13:00 Normal Saline IV .BOLUS JOSR Sodium Chloride 10 ml 05/26/19 10:25 05/26/19 12:34 Saline Flush FLUSH 10 ml ASDIRECTED PRN Administration Keep Vein Open Discontinued Medications Generic Name Dose Route Start Last Admin Trade Name Freq PRN Reason Stop Dose Admin Diphenhydramine HCl 50 mg 05/26/19 12:12 05/26/19 12:34 Benadryl IVPUSH 05/26/19 12:13 50 mg ONETIME ONE Administration Ceftriaxone Sodium 1 gm/ 100 mls @ 200 mls/hr 05/26/19 10:29 05/26/19 11:23 Sodium Chloride IV 05/26/19 10:58 200 mls/hr ONETIME ONE Administration Sodium Chloride 1,000 mls @ 999 mls/hr 05/26/19 10:31 05/26/19 11:21 Normal Saline IV 05/26/19 11:31 999 mls/hr .BOLUS ONE Administration Ketorolac Tromethamine 30 mg 05/26/19 11:01 05/26/19 11:11 Toradol IVPUSH 05/26/19 11:02 30 mg ONETIME ONE Administration Lorazepam 1 mg 05/26/19 11:27 05/26/19 11:42 Ativan IVPUSH 05/26/19 11:28 1 mg ONETIME ONE Administration Methylprednisolone Sodium Succinate 40 mg 05/26/19 10:29 05/26/19 11:11 Solu-Medrol IVPUSH 05/26/19 10:30 40 mg ONETIME ONE Administration Potassium Chloride 40 meq 05/26/19 11:45 05/26/19 11:37 Klor-Con M20 PO 05/26/19 11:46 40 meq ONETIME ONE Administration Tramadol HCl 100 mg 05/26/19 11:01 05/26/19 11:38 Ultram PO 05/26/19 11:02 100 mg ONETIME ONE Administration - Radiology Interpretation Free Text/Narrative:: Facial CT showed multiple carious lesions/likely periapical abscesses right and left 2nd maxillary premolars. No soft tissue fluid collections identified. - Re-Assessments/Exams Free Text/Narrative Re-Assessment/Exam: basic labs requested. IV fluid/Rocephin/Toradol given. Patient started to cry after exam and complained about pain/unhappy that ER staff wasn't moving fast enough to address her perceived needs. Also complained that "everyone is rude to her" . Ativan IV/PO Tramadol ordered. CT results as noted above. Normal WBC. Mg and K significantly decreased. ETOH level negative. Unable to obtain UA so far to check for UTI (patient complaining of frequency) and updated drug screen. Given the level of dental disease/facial swelling in addition to the very low Mag and K, arrangement for patient to be transferred to [facility] made with from the ER as accepting MD. ENT will be able to consult. Will need cardiac monitoring en route. PO potassium ordered. IV Mag ordered. Suspect lip swelling more likely reflects angioedema. Cannot exclude allergy to [place] or pain medications she was given at [facility]. Benadryl IV added. No respiratory difficulties/swelling of tongue/oropharynx, no respiratory distress noted. Free Text/Narrative Re-Assessment/Exam: 05/26/19 13:06 + for Meth/MDMA/THC/opiates/oxycodone No evidence of UTI at this time Departure - Departure Time of Disposition: 13:05 Disposition: DC/Tfer to Acute Hospital 02 Condition: Good Clinical Impression: Hypomagnesemia, Hypokalemia, Pain due to dental caries, Aphthae, oral, Methamphetamine abuse Angioedema of lips Qualifiers: Encounter type: initial encounter Qualified Code(s): T78.3XXA - Angioneurotic edema, initial encounter - Discharge Information *PRESCRIPTION DRUG MONITORING PROGRAM REVIEWED*: Not Applicable *COPY OF PRESCRIPTION DRUG MONITORING REPORT IN PATIENT TERRY: Not Applicable Referrals: PCP,None [Primary Care Provider] - Forms: ED Department Discharge Sepsis Event Note - Evaluation Sepsis Screening Result: Possible Sepsis Risk - Focused Exam Vital Signs: Vital Signs Temp Pulse Resp BP Pulse Ox 05/26/19 10:14 36.5 C 102 H 22 H 111/62 95 Date Exam was Performed: 05/26/19 Time Exam was Performed: 13:07 - My Orders Last 24 Hours: My Active Orders 05/26/19 10:25 Sodium Chloride 0.9% [Saline Flush] 10 ml FLUSH ASDIRECTED PRN Saline Lock Insert [OM.PC] Routine 05/26/19 10:31 Max Facial Sinus wo Cont [CT] Stat 05/26/19 12:57 Magnesium Sulfate/D5W [Magnesium Sulfate in D5W 100 Premix] 1 gm Premix Bag 1 bag IV ONETIME 05/26/19 13:00 Sodium Chloride 0.9% [Normal Saline] 500 ml IV .BOLUS - Assessment/Plan Last 24 Hours: My Active Orders 05/26/19 10:25 Sodium Chloride 0.9% [Saline Flush] 10 ml FLUSH ASDIRECTED PRN Saline Lock Insert [OM.PC] Routine 05/26/19 10:31 Max Facial Sinus wo Cont [CT] Stat 05/26/19 12:57 Magnesium Sulfate/D5W [Magnesium Sulfate in D5W 100 Premix] 1 gm Premix Bag 1 bag IV ONETIME 05/26/19 13:00 Sodium Chloride 0.9% [Normal Saline] 500 ml IV .BOLUS
[2019-05-26] MEDS ORDERED: diphenhydrAMINE 50 MG/ML SDV IVPUSH ONE (12:12)
[2019-05-26] MEDS ORDERED: Sodium Chloride 0.9% 500 ML IV SCH (13:00)
[2019-05-26 13:01] LABS: BARBITURATE SCREEN,URINE NEGATIVE (NEGATIVE); EDDP,URINE SCREEN NEGATIVE (NEGATIVE)
[2019-05-26 13:02] LABS: BENZODIAZEPINES SCREEN,URINE NEGATIVE (NEGATIVE); TCA SCREEN,URINE NEGATIVE (NEGATIVE); THC SCREEN,URINE 50 NG/ML POSITIVE (NEGATIVE)
[2019-05-26 13:24] VITALS: BP 110/76; PULSE 79
== END 2019-05-26 13:20 ==
LOC: LL.ED 10:05
DX: K02.9 Dental caries, unspecified (principal); T78.3XXA Angioneurotic edema, initial encounter; E83.42 Hypomagnesemia; E87.6 Hypokalemia; K12.0 Recurrent oral aphthae; F15.10 Other stimulant abuse, uncomplicated; J45.909 Unspecified asthma, uncomplicated; F41.9 Anxiety disorder, unspecified; F32.9 Major depressive disorder, single episode, unspecified; F17.210 Nicotine dependence, cigarettes, uncomplicated; Z79.899 Other long term (current) drug therapy; Z88.0 Allergy status to penicillin; Z88.5 Allergy status to narcotic agent
CPT/HCPCS: 36415; 70486; 80053; 80305; 80307; 81001; 83605; 83735; 85025; 96365; 96366; 96375; 99285; A9270; J0696; J1200; J1885; J2060; J2920; J3475; J7030; J7040; J7050

== ENCOUNTER 2024-05-17 18:26 | Emergency (ER) | payer SELFPAY ==
[2024-05-17 19:00] LABS: BASOPHILS ABSOLUTE AUTO 0.06 K/uL (0.00-0.20); BASOPHILS PERCENT AUTO 0.8 % (0.0-2.0); EOSINOPHILS ABSOLUTE AUTO 0.01 K/uL (0.00-0.50); EOSINOPHILS PERCENT AUTO 0.1 % (0.0-5.0); HEMOGLOBIN 15.7 g/dL (11.7-15.5); IMMATURE GRAN ABSOLUTE AUTO 0.02 10^3/uL (0.00-0.04); IMMATURE GRAN PERCENT AUTO 0.3 % (0.0-0.4); LYMPHOCYTES ABSOLUTE AUTO 0.49 K/uL (0.50-3.50); LYMPHOCYTES PERCENT AUTO 6.6 % (10.0-50.0); MEAN CORPUSCULAR HEMOGLOBIN 32.3 pg (28.2-33.3); MEAN CORPUSCULAR HGB CONC 34.1 g/dL (31.7-36.0); MEAN CORPUSCULAR VOLUME 94.7 fL (84.0-98.0); MONOCYTES ABSOLUTE AUTO 0.87 K/uL (0.00-1.00); MONOCYTES PERCENT AUTO 11.8 % (2.0-14.0); NEUTROPHILS ABSOLUTE AUTO 5.94 K/uL (1.40-7.00); NEUTROPHILS PERCENT AUTO 80.4 % (45.0-80.0); PLATELET COUNT,PLT 233 K/uL (150-350); RED BLOOD CELL COUNT 4.86 M/uL (3.77-5.09); RED CELL DISTRIBUTION WIDTH 11.9 % (11.2-14.1); WHITE BLOOD CELL COUNT,WBC 7.4 K/uL (4.0-10.2)
[2024-05-17 19:29] LABS: ALANINE AMINOTRANSFERASE,ALT 19 U/L (12-78); ALBUMIN 4.3 g/dL (3.4-5.0); ALKALINE PHOSPHATASE 79 IU/L (46-116); ANION GAP 11.1 meq/L (7-15); ASPARTATE AMNIOTRANSFERASE,AST 10 U/L (15-37); BILIRUBIN TOTAL 0.5 mg/dL (0.2-1.0); BLOOD UREA NITROGEN,BUN 12 mg/dL (7-18); CALCIUM 9.7 mg/dL (8.5-10.1); CARBON DIOXIDE,CO2 28.9 mmol/L (21.0-32.0); CHLORIDE,CL 99 mmol/L (98-107); GLUCOSE RANDOM 110 mg/dL (70-99); MAGNESIUM 1.7 mg/dL (1.8-2.4); POTASSIUM,K 4.1 mmol/L (3.5-5.1); PROTEIN TOTAL,TP 7.5 g/dL (6.4-8.2); SODIUM,NA 139 mmol/L (136-145)
[2024-05-17 19:39] LABS: ESTIMATED GFR 71 mL/min (>=60)
[2024-05-17] MEDS ORDERED: Sodium Chloride 0.9% 10 ML Syringe FLUSH PRN (19:49)
[2024-05-17 20:02] LABS: APPEARANCE,URINE SLIGHTLY CLOUDY; BILIRUBIN,URINE NEGATIVE (NEGATIVE); COLOR,URINE YELLOW; GLUCOSE,URINE NEGATIVE (NEGATIVE); KETONES,URINE 15 mg/dL (NEGATIVE); LEUKOCYTE ESTERASE,URINE NEGATIVE (NEGATIVE); NITRITE,URINE NEGATIVE (NEGATIVE); OCCULT BLOOD,URINE NEGATIVE (NEGATIVE); PH,URINE 6.5 (5.0-9.0); PROTEIN,URINE 30 mg/dL (NEGATIVE); UROBILINOGEN,URINE 0.2 E.U./dL (0.2-1.0)
[2024-05-17 20:10] LABS: AMPHETAMINES SCREEN, URINE NEGATIVE (NEGATIVE); BARBITURATE SCREEN,URINE NEGATIVE (NEGATIVE); BENZODIAZEPINES SCREEN,URINE NEGATIVE (NEGATIVE); BUPRENORPHINE SCREEN,URINE NEGATIVE (NEGATIVE); COCAINE METABOLITES,URINE NEGATIVE (NEGATIVE); EDDP,URINE SCREEN NEGATIVE (NEGATIVE); METHAMPHETAMINES SCREEN, URINE NEGATIVE (NEGATIVE); OXYCODONE SCREEN,URINE NEGATIVE (NEGATIVE); TCA SCREEN,URINE NEGATIVE (NEGATIVE); THC SCREEN,URINE 50 NG/ML POSITIVE (NEGATIVE)
[2024-05-17 20:18] LABS: AMORPHOUS SEDIMENT,URINE MODERATE /HPF (0/HPF); BACTERIA,URINE RARE /HPF (NONE TO FEW); EPITHELIAL CELLS,URINE MANY /LPF; MUCUS,URINE MODERATE /LPF (NEGATIVE); RBC,URINE 0-5 /HPF; WBC,URINE 0-5 /HPF
[2024-05-17] MEDS: Ondansetron 4 MG Tab.DIS PO ONE (20:20)
[2024-05-17] MEDS: Loperamide 2 MG Tab PO ONE (20:20)
[2024-05-17] MEDS: Sodium Chloride 0.9% 1,000 ML IV ONE (20:21)
[2024-05-17 21:07] VITALS: BP 127/75; PULSE 102
[2024-05-17] MEDS: Take Home: Ondansetron 4 MG Tab.DIS, 5 Tab Pack PO ONE (22:10)
== END 2024-05-17 21:37 | disposition home or self-care (01) ==
LOC: LL.ED 18:26
DX: E86.0 Dehydration (principal); E83.42 Hypomagnesemia; R05.9 Cough, unspecified; J45.909 Unspecified asthma, uncomplicated; Z90.49 Acquired absence of other specified parts of digestive tract; Z88.0 Allergy status to penicillin; Z88.5 Allergy status to narcotic agent; Z88.8 Allergy status to other drugs, medicaments and biological substances; Z79.890 Hormone replacement therapy; Z79.899 Other long term (current) drug therapy
CPT/HCPCS: 36415; 80053; 80305-QW; 81001; 83605; 83735; 85025; 87428-QW; 96365; 99284-25; A9270-GY; J3475; J7030; Q0162